=== PATIENT | female | born 1995 | race Caucasian/White ===

== ENCOUNTER → 2020-12-10 08:13 | Outpatient (BNVA) | payer SELFPAY | PROVIDERS: Referring Provider Dermatology; Visit Provider Podiatrist Foot & Ankle Surgery | DX: M25.572 Pain in left ankle and joints of left foot (principal) | CPT/HCPCS: 73610 ==

== ENCOUNTER 2020-12-10 10:59 | Outpatient (CLI) | payer SELFPAY | END 2020-12-10 11:00 | disposition home or self-care (01) | LOC: SPT 11:00 | PROVIDERS: Visit Provider Podiatrist Foot & Ankle Surgery | DX: Z46.89 Encounter for fitting and adjustment of other specified devices (principal); S93.409D Sprain of unspecified ligament of unspecified ankle, subsequent encounter; X58.XXXD Exposure to other specified factors, subsequent encounter | CPT/HCPCS: L1902 ==